=== PATIENT | male | born 1965 | race Caucasian/White ===

== ENCOUNTER 2025-07-05 16:47 | Emergency (ER) | payer MEDICAID, OTHER ==
[~2025-07-05] VITALS: Ht 177.8 cm; Wt 68.0 kg
[2025-07-05 16:50] VITALS: BP 171/96; PULSE 82; RESP 18; TEMP 97.8; O2SAT 99
[2025-07-05] MEDS ORDERED: TORADOL ONE (17:32)
[2025-07-05] MEDS: TORADOL IM STA (17:35)
[2025-07-05 18:47] LABS: BASOPHIL # 0.0 10^3/uL (0.0-0.1); BASOPHIL % 0.2 % (0.2-1.2); EOSINOPHIL # 0.2 10^3/uL (0.0-0.2); EOSINOPHIL % 4.3 % (0.0-5.0); HEMATOCRIT(ML) 34.2 % (37.0-53.0); IG % 0.40 % (0.00-0.50); LYMPHOCYTES # 1.33 10^3/uL1 (1.0-4.8); LYMPHOCYTES % 24.8 % (24.0-44.0); MEAN CORP HGB 29.4 pg (26-34); MEAN CORP HGB CONCENTRATION 33.0 g/dL (33-36.5); MEAN CORP VOLUME 88.8 fL (78-100); MONOCYTES # 0.5 10^3/uL (0.3-0.8); MONOCYTES % 10.1 % (5.0-12.0); NEUTROPHIL # 3.2 10^3/uL (1.8-7.7); NEUTROPHILS % 60.2 % (41.0-85.0); RED BLOOD CELL 3.85 10^6/uL (4.50-5.90); RED CELL DISTRIBUTION WIDTH 14.1 % (11.5-14.5); WHITE BLOOD CELL 5.4 10^3/uL (4.5-11.0)
[2025-07-05 19:17] LABS: CREATININE SERUM 0.83 mg/dL (0.59-1.40); EST GFR, NON-AA 93.9 (>/=60)
[2025-07-05] MEDS ORDERED: DILAUDID 0.5 MG/0.5 ML SYRINGE ONE (19:43)
[2025-07-05] MEDS: DILAUDID 0.5 MG/0.5 ML SYRINGE IM STA (19:46)
== END 2025-07-05 19:52 | disposition home or self-care (01) ==
LOC: ER 16:47
DX: M54.50 Low back pain, unspecified (principal); I10 Essential (primary) hypertension; Z88.0 Allergy status to penicillin; Z88.5 Allergy status to narcotic agent
CPT/HCPCS: 99285; 72131; 96372 ×2; 85025; 36415; 80048; 84145; J1885